=== PATIENT | female | born 1990 | race Caucasian/White ===

== ENCOUNTER 2020-07-05 08:08 | Emergency (ER) | payer OTHER ==
[~2020-07-05] VITALS: Ht 162.6 cm; Wt 59.1 kg
[2020-07-05 08:14] VITALS: BP 131/84; TEMP 98.8
[2020-07-05 09:39] LABS: BASO # 0.1 (0.0-0.2); BASO % 0.6 % (0.0-2.0); EOS % 0.5 % (0-4.0); GRAN # 5.6 (1.4-6.5); GRAN % 68.3 % (42.2-75.2); HEMATOCRIT 39.6 % (37.0-47.0); HEMOGLOBIN 12.7 g/dl (12.5-16.0); LYMPH % 24.5 % (20.0-51.0); MEAN CELL VOLUME 89 fl (80.0-100.0); MEAN CORPUSCULAR HEMOGLOBIN 29 pg (27.0-31.0); MEAN CORPUSCULAR HGB CONC 32 g/dl (33.0-37.0); MEAN PLATELET VOLUME 9.5 fl (7.4-10.4); MONO # 0.5 (0.1-0.6); MONO % 5.6 % (1.7-9.3); PLATELET COUNT 317 K/mm3 (130-400); RED BLOOD COUNT 4.44 M/mm3 (4.10-5.30); REDCELL DISTRIBUTION WIDTH-CV 12.9 % (11.5-14.5)
[2020-07-05 09:44] LABS: COLLECTION METHOD CLEAN CATCH
[2020-07-05 09:49] LABS: PH 7 (5-8); SQUAMOUS EPITHELIAL 0-2 /hpf; URINE APPEARANCE Clear; URINE BACTERIA None Seen /hpf; URINE BILIRUBIN Negative (NEGATIVE); URINE BLOOD Negative (NEGATIVE); URINE COLOR Yellow; URINE GLUCOSE Negative (NEGATIVE); URINE KETONE Negative (NEGATIVE); URINE LEUKOCYTE ESTERASE Negative (NEGATIVE); URINE NITRATE Negative (NEGATIVE); URINE PROTEIN(semi-quant) Negative (NEGATIVE); URINE RBC 0-2 /hpf; URINE UROBILINOGEN Negative (NEGATIVE)
[2020-07-05 09:51] LABS: ALANINE AMINOTRANSFERASE 15 U/L (4-34); ALBUMIN 4.5 gm/dL (3.5-5.0); ALKALINE PHOSPHATASE 62 U/L (50-136); ANION GAP 9 mmol/L (7-16); AST,SGOT 21 U/L (15-37); BILIRUBIN,TOTAL 0.4 mg/dL (0.0-1.0); BLOOD UREA NITROGEN 12 mg/dL (7-17); CALCIUM 9.1 mg/dL (8.4-10.2); CARBON DIOXIDE 24 mmol/L (22-30); CHLORIDE 107 mmol/L (98-107); CREATININE, serum 0.57 (0.52-1.25); GLUCOSE 103 mg/dL (74-106); SODIUM 140 mmol/L (137-145); TOTAL PROTEIN 7.7 gm/dL (6.4-8.2)
[2020-07-05 09:52] LABS: C-REACTIVE PROTEIN < 0.5 mg/dL (0.0-0.9)
[2020-07-05 11:56] VITALS: PULSE 85
== END 2020-07-05 11:00 | disposition home or self-care (01) ==
LOC: COL.ER 08:08
PROVIDERS: Family Medicine
DX: R53.81 Other malaise (principal); R53.83 Other fatigue; Z32.02 Encounter for pregnancy test, result negative